=== PATIENT | female | born 1955 | race Asian ===

== ENCOUNTER 2020-11-22 19:07 | Outpatient (CLI) | payer OTHER ==
[2020-11-22 19:43] LABS: PLATELET COUNT 222 K/uL (152-353)
[2020-11-22 20:17] LABS: POTASSIUM 4.3 mmol/L (3.6-5.2)
== END 2020-11-22 21:39 | disposition home or self-care (01) ==
LOC: LAB 19:07
PROVIDERS: ATTEND Nurse Practitioner Family
DX: Z00.00 Encounter for general adult medical examination without abnormal findings (principal); Z79.899 Other long term (current) drug therapy; R53.83 Other fatigue; R53.81 Other malaise; I10 Essential (primary) hypertension; F41.9 Anxiety disorder, unspecified
CPT/HCPCS: 80053; 80061; 82306; 82607; 83036; 84439; 84443; 85027